=== PATIENT | female | born 1975 | race Caucasian/White ===

== ENCOUNTER 2018-12-20 17:03 | Emergency (ER) | payer MEDICARE, OTHER ==
--- NOTE | 2018-12-20 17:31 | EDM.PDOC ---
ED HPI GENERAL MEDICAL PROBLEM - General Chief Complaint: Genitourinary Problem Stated Complaint: itchy Time Seen by Provider: 12/20/18 17:30 Source of Information: Reports: Patient History Limitations: Reports: No Limitations - History of Present Illness INITIAL COMMENTS - FREE TEXT/NARRATIVE: 43-year-old female with vaginal and perineal itching for about the past week. She has noticed no discharge. She has noticed no rash in the area. She does report that it seems to burn in her perineal area when she urinates. No hematuria. She has no abdominal pain. She has no flank pain. She has no back pain. She also reports that she has had itchy eyes with some stuffiness of her nose for the past few days. [place] trailer with [id number] cleaning agents and also they just inherited some cats that were at the trailer and the patient has been exposed to the cats as well. The patient reports that she has also not real allergies and had problems like this itchy eyes and stuffy nose in the past. She is on no new medications. She has had some nausea today but no vomiting. She has had no difficulty breathing or cough. She has no pain. She rates her pain as 0/10. There are no other associated signs or symptoms. There are no other modifying factors. Onset: Other (As above) Duration: Constant Location: Reports: Face (Eyes and nose), Pelvis (Vaginal and perineal area) Quality: Reports: Other (No pain. 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) Vaginal Pain Score (Numeric/FACES): 5 Anus Pain Score (Numeric/FACES): 5 - Related Data Allergies Allergy/AdvReac Type Severity Reaction Status Date / Time No Known Allergies Allergy Verified 12/20/18 17:18 Home Meds: Home Meds Fluconazole [Diflucan] 150 mg PO ONETIME #2 tab 12/20/18 [Rx] Loratadine [Claritin] 10 mg PO DAILY #30 tab 12/20/18 [Rx] metroNIDAZOLE [Flagyl] 500 mg PO BID 7 Days #14 tab 12/20/18 [Rx] risperiDONE 1 tab PO BEDTIME 12/20/18 [History] Past Medical History Psychiatric History: Reports: Bipolar, PTSD - Past Surgical History Female Surgical History: Reports: Section, Tubal Ligation Social & Family History - Tobacco Use Smoking Status *Q: Current Every Day Smoker - Alcohol Use Alcohol Use History: No - Living Situation & Occupation Living situation: Reports: Occupation: Disabled Social History Comment: She is here with her . ED ROS GENERAL - Review of Systems Review Of Systems: See Below Constitutional: Reports: No Symptoms HEENT: Reports: Other (Nasal stuffiness. Itchy eyes.) Respiratory: Reports: No Symptoms Cardiovascular: Reports: No Symptoms Endocrine: Reports: No Symptoms GI/Abdominal: Reports: Nausea : Reports: Other (Apparently on vaginal itching). Denies: Discharge, Dysuria , Flank Pain Musculoskeletal: Reports: No Symptoms Skin: Reports: No Symptoms (No rashes) Neurological: Reports: No Symptoms Hematologic/Lymphatic: Reports: No Symptoms Immunologic: Reports: No Symptoms ED EXAM, GENERAL - Physical Exam Exam: See Below Exam Limited By: No Limitations General Appearance: Alert, WD/WN, Mild Distress Eye Exam: Bilateral Eye: EOMI, Normal Inspection, PERRL Ears: Normal External Exam, Hearing Grossly Normal Ear Exam: Bilateral Ear: Auricle Normal Nose: Other (No conjunctival injection. Mild puffiness in the infraorbital area. Nasal mucosa appears clear.) Throat/Mouth: Normal Oropharynx, Normal Voice, No Airway Compromise Head: Atraumatic, Normocephalic Neck: Normal Inspection, Supple, Non-Tender, Full Range of Motion Respiratory/Chest: No Respiratory Distress, Lungs Clear, Normal Breath Sounds, No Accessory Muscle Use, Chest Non-Tender Cardiovascular: Normal Peripheral Pulses, Regular Rate, Rhythm, No JVD Peripheral Pulses: 2+: Radial (L), Radial (R), Dorsalis Pedis (L), Dorsalis Pedis (R) GI/Abdominal: Normal Bowel Sounds, Soft, Non-Tender, No Mass (Female) Exam: Normal External Exam, Other (No perineal or vaginal lesions noted.). No: Vaginal Bleeding, Vaginal Discharge, Vaginal Lesions Back Exam: Normal Inspection Extremities: Normal Inspection, Normal Range of Motion, Non-Tender, No Pedal Edema, Normal Capillary Refill, Other Neurological: Alert, Oriented, CN II-XII Intact, Normal Cognition, No Motor/ Sensory Deficits Skin Exam: Warm, Dry, Intact, Normal Color, No Rash Course - Vital Signs Last Recorded V/S: Last Vital Signs Temp 36.6 C 12/20/18 17:16 Pulse 105 H 12/20/18 17:16 Resp 20 12/20/18 17:16 BP 118/74 12/20/18 17:16 Pulse Ox 97 12/20/18 17:16 - Orders/Labs/Meds Labs: Laboratory Tests 12/20/18 12/20/18 Range/Units 17:17 17:17 Urine Color Yellow (YELLOW) Urine Appearance Clear (CLEAR) Urine pH 6.0 (5.0-6.5) Ur Specific Eastern 1.020 (1.010-1.025) Urine Protein Negative (NEGATIVE) mg/dL Urine Glucose (UA) Normal (NORMAL) mg/dL Urine Ketones Negative (NEGATIVE) mg/dL Urine Occult Blood Negative (NEGATIVE) Urine Nitrite Negative (NEGATIVE) Urine Bilirubin Negative (NEGATIVE) Urine Urobilinogen Normal (NEGATIVE) mg/dL Ur Leukocyte Esterase Negative (NEGATIVE) Urine RBC Not seen (0-5) Urine WBC 0-5 (0-5) Ur Squamous Epith Cells Few H (NS,R,O) Urine Bacteria Few H (NS) Urine HCG, Qual Negative (NEGATIVE) Meds: Medications Discontinued Medications Generic Name Dose Route Start Last Admin Trade Name Armando PRN Reason Stop Dose Admin Hydroxyzine Pamoate 50 mg 12/20/18 18:05 Vistaril PO 12/20/18 18:06 ONETIME ONE Metronidazole 500 mg 12/20/18 18:05 Flagyl PO 12/20/18 18:06 ONETIME ONE - Re-Assessments/Exams Free Text/Narrative Re-Assessment/Exam: 12/20/18 17:57: Patient's urinalysis and urine prexy tests were negative. The exam of her perineal and vaginal area showed really no evidence of infection. Her wet prep was negative except for clue cells. I will treat the patient with Flagyl twice daily for 7 days and I will also give her a single dose of Diflucan for a possible yeast infection. In regard to her itchy eyes and nasal congestion, I feel this is environmental allergies and she should take Claritin for the symptoms. She was urged to follow-up with her primary doctor if she has ongoing problems with vaginal itching. Departure - Departure Time of Disposition: 18:00 Disposition: Home, Self-Care 01 Condition: Good Clinical Impression: Environmental and seasonal allergies, Perineal itching, female, Bacterial vaginosis - Discharge Information Prescriptions: Fluconazole [Diflucan] 150 mg PO ONETIME #2 tab Loratadine [Claritin] 10 mg PO DAILY #30 tab metroNIDAZOLE [Flagyl] 500 mg PO BID 7 Days #14 tab Instructions: Allergies, Adult, [id number], Bacterial Vaginosis, [id number] Forms: ED Department Discharge Additional Instructions: You appear to have environmental or seasonal allergies that are causing the itching of your eyes and stuffy nose. I have given you a prescription of Claritin to treat this. You do appear to have a bacterial overgrowth called bacterial vaginosis and that could be causing your itching. I'm treating you with Flagyl for this. You did not have any evidence of a yeast infection but I am giving you a medication to treat for that possibility as well (Diflucan 150 mg). He should drink plenty of fluids. You should follow-up with your primary doctor. Back to the emergency department for vomiting, abdominal pain, high fever or any other concerning sign or symptom.
[2018-12-20] MEDS ORDERED: metroNIDAZOLE 500 MG Tab PO ONE (18:05)
== END 2018-12-20 18:20 | disposition home or self-care (01) ==
LOC: FB.ED 17:03
DX: N76.0 Acute vaginitis (principal); J30.2 Other seasonal allergic rhinitis; F17.200 Nicotine dependence, unspecified, uncomplicated; Z98.51 Tubal ligation status
CPT/HCPCS: 81001; 81025; 87210; 99283; A9270

== ENCOUNTER 2018-12-29 13:27 | Emergency (ER) | payer MEDICARE, OTHER ==
--- NOTE | 2018-12-29 14:48 | EDM.PDOC ---
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 She denies having any abdominal pain,dizziness or lightheadedness. She had this episode in the past and apparently it resolved on it's own. - Related Data Allergies Allergy/AdvReac Type Severity Reaction Status Date / Time No Known Allergies Allergy Verified 12/20/18 17:18 Home Meds: Home Meds Fluconazole [Diflucan] 150 mg PO ONETIME #2 tab 12/20/18 [Rx] Loratadine [Claritin] 10 mg PO DAILY #30 tab 12/20/18 [Rx] metroNIDAZOLE [Flagyl] 500 mg PO BID 7 Days #14 tab 12/20/18 [Rx] risperiDONE 1 tab PO BEDTIME 12/20/18 [History] Past Medical History Psychiatric History: Reports: Bipolar, PTSD - Past Surgical History Female Surgical History: Reports: Section, Tubal Ligation Social & Family History - Family History Family Medical History: Noncontributory - Caffeine Use Caffeine Use: Reports: Coffee Other Caffeine Use: daily - Living Situation & Occupation Living situation: Reports: Occupation: Disabled ED ROS GENERAL - Review of Systems Review Of Systems: See Below Constitutional: Reports: No Symptoms HEENT: Reports: No Symptoms Respiratory: Reports: No Symptoms Cardiovascular: Reports: No Symptoms Endocrine: Reports: No Symptoms GI/Abdominal: Reports: No Symptoms : Reports: Irregular Menses, Other (heavy meses) Musculoskeletal: Reports: No Symptoms Skin: Reports: No Symptoms Neurological: Reports: No Symptoms Psychiatric: Reports: No Symptoms Hematologic/Lymphatic: Reports: No Symptoms ED EXAM, RENAL/ - Physical Exam Exam: See Below Exam Limited By: Altered Mental Status General Appearance: Alert, No Apparent Distress Ears: Normal External Exam, Normal Canal, Hearing Grossly Normal Nose: Normal Inspection, Normal Mucosa, No Blood Throat/Mouth: Normal Inspection Head: Atraumatic, Normocephalic Neck: Normal Inspection, Supple, Non-Tender Respiratory/Chest: No Respiratory Distress, Lungs Clear, Normal Breath Sounds, No Accessory Muscle Use, Chest Non-Tender Cardiovascular: Normal Peripheral Pulses, Regular Rate, Rhythm, No Edema, No Gallop GI/Abdominal: Normal Bowel Sounds, Non-Tender, No Organomegaly, No Distention (Female) Exam: Deferred. No: Adnexal Tenderness Rectal (Female) Exam: Deferred Course - Vital Signs Text/Narrative:: HB-13.6 Last Recorded V/S: Last Vital Signs Temp 36.3 C 12/29/18 13:40 Pulse 67 12/29/18 13:40 Resp 16 12/29/18 13:40 BP 124/70 12/29/18 13:40 Pulse Ox 100 12/29/18 13:40 - Orders/Labs/Meds Labs: Laboratory Tests 12/29/18 Range/Units 13:50 Hgb 13.6 (11.5-15.5) g/dL Departure - Departure Time of Disposition: 13:55 Disposition: Home, Self-Care 01 Condition: Good Clinical Impression: Menorrhagia - Discharge Information Instructions: Menorrhagia, [id number] Referrals: PCP,None [Primary Care Provider] - Forms: ED Department Discharge Additional Instructions: please read discharge instructions on menorrhagia-menses that is heavier than usual your hemoglobin is normal,that's means you don't have anemia or profuse bleeding follow up with one of the clinic providers because we don't do follow up in the ER
== END 2018-12-29 14:28 | disposition home or self-care (01) ==
LOC: FB.ED 13:27
DX: N92.0 Excessive and frequent menstruation with regular cycle (principal); F31.9 Bipolar disorder, unspecified; F43.10 Post-traumatic stress disorder, unspecified; Z79.899 Other long term (current) drug therapy
CPT/HCPCS: 36415; 85018; 99283

== ENCOUNTER → 2019-03-24 | Outpatient (CLI) | payer MEDICARE, OTHER | LOC: FB.CLBR 16:08 | PROVIDERS: ATTEND Nurse Practitioner Family | DX: R30.0 Dysuria (principal); L25.9 Unspecified contact dermatitis, unspecified cause | CPT/HCPCS: 81001; 99213 ==